=== PATIENT | male | born 1950 | race Caucasian/White ===

== ENCOUNTER → 2022-02-06 08:54 | Outpatient (CLI) | payer MEDICARE, OTHER, SELFPAY ==
[2022-02-06 13:17] LABS: COVID19 -Nasal RAPID Negative (Negative)
== END ==
PROVIDERS: Visit Provider Surgery
DX: Z20.822 Contact with and (suspected) exposure to COVID-19 (principal); Z01.812 Encounter for preprocedural laboratory examination
CPT/HCPCS: 87635; C9803

== ENCOUNTER 2022-02-07 06:39 | Day surgery (SDC) | payer MEDICARE, OTHER, SELFPAY ==
[2022-02-07 06:58] VITALS: BP 142/77; PULSE 46; RESP 12; TEMP 36.3; O2SAT 100
[2022-02-07 07:00] VITALS: BMI 24.1
[2022-02-07] MEDS: LACTATED RINGERS 1,000 ML 42 ML IV (07:09)
--- NOTE | 2022-02-07 07:45 | PM.HP.1 ---
History of Present Illness History of Present Illness Date Patient Seen: 02/07/22 Time Patient Seen: 07:46 Chief complaint: Recurrent RIH Hernia Repair w/ Mesh Narrative: Colton is here for his open recurrent right inguinal hernia repair. No changes to his health. See the prior office note for details. Patient History Medical History Anxiety Hyperlipemia Hypertension Insomnia Rheumatoid arthritis Tinnitus Vitamin D deficiency Surgical History H/O arthroscopy of left knee H/O right inguinal hernia repair Family & Social History Social History: household members spouse Tobacco & Substance use: Smoking Status Former smoker alcohol intake current alcohol intake frequency 0-2 drinks per day Substance Use Type marijuana Meds Home Medications and Allergies Home Medications Medication Instructions Recorded Confirmed Type calcium carbonate 500 mg-vitamin 1 tab PO BID 12/14/21 02/07/22 History D3 10 mcg (400 unit) tablet escitalopram oxalate 10 mg tablet 10 mg PO DAILY 12/14/21 02/07/22 History folic acid 1 mg tablet 1 mg PO DAILY 12/14/21 02/07/22 History lisinopril 10 mg tablet 10 mg PO DAILY 12/14/21 02/07/22 History methotrexate sodium 2.5 mg tablet 2.5 mg PO QWEEK 12/14/21 02/07/22 History omeprazole 20 mg capsule,delayed 20 mg PO DAILY 12/14/21 02/07/22 History release simvastatin 40 mg tablet 40 mg PO DAILY 12/14/21 02/07/22 History trazodone 100 mg tablet 100 mg PO BEDTIME PRN Sleep 12/14/21 02/07/22 History Allergies Allergy/AdvReac Type Severity Reaction Status Date / Time No Known Drug Allergies Allergy Verified 02/07/22 06:55 Exam Vital Signs (past 8 hours): - 02/07/22 06:58 Temperature 97.3 F L Pulse Rate 46 L Respiratory Rate 12 Blood Pressure 142/77 H Pulse Oximetry 100 Oxygen Delivery Method Room Air Oxygen Delivery Method Room Air Const General: healthy appearing Other: Right inguinal hernia Assessment & Plan Assessment and plan (1) Recurrent right inguinal hernia: Status: Acute Plan Proceed with open recurrent right inguinal hernia repair with mesh. Time Spent With Patient Critical Care time: I spent a total of [] minutes of critical care time on this patient's care today; this time is exclusive of procedural time.
[2022-02-07] MEDS: CEFAZOLIN 2 GM/20 ML SYRINGE IV (08:02)
[2022-02-07] MEDS: LIDOCAINE 1% W/EPI 20 ML INJ (08:12)
--- NOTE | 2022-02-07 08:17 | SUR.OPER ---
Supine on padded OR bed, head on pillow, arms secured on padded arm boards at <90 degrees abduction, legs uncrossed, safety belt at thigh, tape over blanket over lower legs.POSITION APPROVED BY SURGEON AND ANESTHESIA
[2022-02-07] MEDS: BUPIVACAINE 0.5% (PF) VIAL 30 ML INJ (08:22)
[2022-02-07 09:45] VITALS: BP 153/85; PULSE 57; RESP 21; TEMP 36.7; O2SAT 94
[2022-02-07 09:50] VITALS: BP 146/83; PULSE 62; RESP 16; O2SAT 94
--- NOTE | 2022-02-07 09:50 | SUR.PHASEI ---
Patient to recovery room with anesthesia and OR nursing staff s/p hernia repair in stable condition; placed on engine monitor, vss; no distress noted. Maintaining oxygen at 95% on room air. Dressing to right lower groin clean, dry and intact.
--- NOTE | 2022-02-07 09:53 | PM.OP.1 ---
Operative Date/Time/Diagnoses Date of procedure: 02/07/22 Time of procedure: 09:53 Pre-op diagnosis: Recurrent right inguinal hernia Post-op diagnosis: same Procedure & Clinicians Procedure: Open recurrent right inguinal hernia repair with mesh Same procedure as scheduled: Yes Surgeon: Leandro Ardon Anesthesia Type: General Operative Notes Procedure in detail: Patient is a 72-year-old man who presented with right inguinal discomfort. He stated that he had had 2 right inguinal hernia repairs and he believed they were both performed laparoscopically. Preoperative antibiotic was administered. The patient was brought to the operating room and placed on the table in supine position general anesthesia was induced. After clipping the hair in that right lower quadrant and right groin it was evident that he had had a prior open hernia repair. Roughly 10 mL of local anesthetic were injected into the skin and subcutaneous adipose tissue over the right groin. A 6 cm incision was made over the prior open right inguinal hernia repair scar. Dissection was carried down through the subcutaneous adipose tissue. The external oblique fascia was visible with multiple Ethibond sutures in place. The Ethibond sutures were cut and fascia was divided sharply with a 15 blade scalpel. It became evident that there was mesh adherent to the undersurface of the external oblique fascia the mesh was divided. Upon further dissection it became clear that the mesh had broken free from its attachments to the pubic tubercle. There appeared to be another layer of mesh at the floor of the inguinal canal which could potentially represent a laparoscopically placed mesh. The cord was dissected free from the to layers of mesh. There is extensive fibrosis but agreeable to dissect the cord using a combination of sharp and blunt dissection. We encircled the cord with a [place] drain for retraction. There is no obvious indirect sac and it is assumed that the patient's symptoms are from a direct defect since the mesh was detached medially. We placed a mesh patch along the inguinal canal floor. The mesh was secured with multiple interrupted 3-0 Prolene sutures to the pubic tubercle and shelving edge of the inguinal ligament as well as to the conjoint tendon medially. We overlapped the tails to recreate an internal ring and secured the medial tail to the inguinal ligament with additional sutures. We injected some more local into the fatty tissue in the inguinal canal and cord. Finally, we removed the [place] drain and closed the external oblique fascia with a running 3-0 Vicryl suture. Skin was closed with interrupted 3-0 Vicryl dermal sutures and a running 4 Monocryl subcuticular stitch. EBL 15 mL The patient was awakened and brought to recovery room. Post-operative Condition: stable Disposition: PACU
[2022-02-07 09:55] VITALS: BP 116/82; PULSE 62; RESP 12; O2SAT 96
[2022-02-07] MEDS: OXYCODONE IR 5 MG TABLET PO (09:56)
[2022-02-07] MEDS: ONDANSETRON 4 MG/2 ML INJ IV (09:57)
[2022-02-07 10:06] VITALS: BP 148/64; PULSE 58; RESP 16; TEMP 36.7; O2SAT 95
== END 2022-02-07 10:35 | disposition home or self-care (01) ==
PROVIDERS: PCP Registered Nurse; Referring Provider Surgery; Visit Provider Surgery
PROC: (CPT 49520; principal; 2022-02-07 07:45)
DX: K40.91 Unilateral inguinal hernia, without obstruction or gangrene, recurrent (principal); I10 Essential (primary) hypertension
CPT/HCPCS: 49520; J0690; J1100; J2250; J2405; J2704; J3010

== ENCOUNTER → 2022-02-22 12:04 | Outpatient (CLI) | payer MEDICARE, OTHER, SELFPAY ==
--- NOTE | 2022-02-22 12:05 | DI.US.S_ITS ---
PROCEDURE: US ABDOMEN LIMITED INDICATIONS: Abdominal postprandial pain TECHNIQUE: Real-time focused scanning was performed of the abdomen, with image documentation. COMPARISON: None. FINDINGS: The liver is mildly prominent in size at 16.1 cm and demonstrates normal echogenicity. No findings of gallstones or sludge are seen. The gallbladder wall is not thickened, measuring 3 mm or less. No specific pericholecystic fluid is seen. The sonographic [place]razas sign is negative. There is no biliary dilatation, the common bile duct measures 5 mm. No significant pancreatic abnormality is seen on these images. IMPRESSION: The gallbladder demonstrates a normal sonographic appearance. No biliary dilatation is seen. Dictated by: Cesario Thao M.D. on 02/22/2022 at 13:23 Approved by: Cesario Thao M.D. on 02/22/2022 at 13:24
== END ==
PROVIDERS: PCP Registered Nurse; Referring Provider Surgery; Visit Provider Surgery
DX: R10.9 Unspecified abdominal pain (principal)
CPT/HCPCS: 76705

== ENCOUNTER → 2022-06-05 11:34 | Outpatient (CLI) | payer MEDICARE, OTHER, SELFPAY ==
[2022-06-05 13:42] LABS: COVID19 -Nasal RAPID Negative (Negative)
== END ==
PROVIDERS: PCP Registered Nurse; Visit Provider Surgery
DX: Z20.822 Contact with and (suspected) exposure to COVID-19 (principal); Z01.812 Encounter for preprocedural laboratory examination
CPT/HCPCS: 87635

== ENCOUNTER 2022-06-06 07:55 | Day surgery (SDC) | payer MEDICARE, OTHER, SELFPAY ==
[2022-06-06 08:13] VITALS: BP 147/74; PULSE 55; RESP 14; TEMP 37; O2SAT 98; BMI 21.2
[2022-06-06] MEDS: LACTATED RINGERS 1,000 ML 84 ML IV (08:24)
--- NOTE | 2022-06-06 08:58 | PM.HP.1 ---
History of Present Illness History of Present Illness Date Patient Seen: 06/06/22 Time Patient Seen: 08:58 Chief complaint: OPEN LIH REPAIR Narrative: Colton is here for his left inguinal hernia repair. We performed an open recurrent right inguinal hernia repair several months ago. He still has same types of pain on the right side that always did pulling burning Patient History Medical History (Updated 02/07/22 @ 10:08 by Leandro Ardno MD) Anxiety Hyperlipemia Hypertension Insomnia Rheumatoid arthritis Tinnitus Vitamin D deficiency Surgical History H/O arthroscopy of left knee H/O right inguinal hernia repair Family & Social History Social History: household members spouse Tobacco & Substance use: Smoking Status Former smoker alcohol intake current alcohol intake frequency 0-2 drinks per day Substance Use Type marijuana Meds Home Medications and Allergies Home Medications Medication Instructions Recorded Confirmed Type calcium carbonate 500 mg-vitamin 1 tab PO BID 12/14/21 06/06/22 History D3 10 mcg (400 unit) tablet escitalopram oxalate 10 mg tablet 10 mg PO DAILY 12/14/21 06/06/22 History folic acid 1 mg tablet 1 mg PO DAILY 12/14/21 06/06/22 History lisinopril 10 mg tablet 10 mg PO DAILY 12/14/21 06/06/22 History methotrexate sodium 2.5 mg tablet 2.5 mg PO QWEEK 12/14/21 06/06/22 History omeprazole 20 mg capsule,delayed 20 mg PO DAILY 12/14/21 06/06/22 History release simvastatin 40 mg tablet 40 mg PO DAILY 12/14/21 06/06/22 History trazodone 100 mg tablet 100 mg PO BEDTIME PRN Sleep 12/14/21 06/06/22 History Allergies Allergy/AdvReac Type Severity Reaction Status Date / Time No Known Drug Allergies Allergy Verified 06/06/22 08:21 Exam Vital Signs (past 8 hours): - 06/06/22 08:13 Temperature 98.6 F Pulse Rate 55 L Respiratory Rate 14 Blood Pressure 147/74 H Pulse Oximetry 98 Oxygen Delivery Method Room Air Oxygen Delivery Method Room Air Narrative Exam Narrative: Left inguinal hernia Right groin well-healed scar Assessment & Plan Assessment and plan (1) Left inguinal hernia: Status: Acute Plan We will proceed with the open left inguinal hernia repair today. We reviewed the risks and benefits and he would like to proceed. Time Spent With Patient Critical Care time: I spent a total of [] minutes of critical care time on this patient's care today; this time is exclusive of procedural time.
[2022-06-06] MEDS: CEFAZOLIN 2 GM/100 ML PREMIX 100 ML IV (09:25)
--- NOTE | 2022-06-06 09:31 | SUR.OPER ---
Supine on padded OR bed, head on pillow, arms secured on padded arm boards at <90 degrees abduction, legs uncrossed, safety belt at thigh, tape over blanket over lower legs.
[2022-06-06] MEDS: BUPIVACAINE 0.25% (PF) 30 ML, EPINEPHrine 0.15 MG INJ (09:35)
[2022-06-06 10:31] VITALS: BP 136/89; PULSE 62; RESP 19; TEMP 36.8; O2SAT 94
--- NOTE | 2022-06-06 10:41 | PM.OP.1 ---
Operative Date/Time/Diagnoses Date of procedure: 06/06/22 Time of procedure: 10:41 Pre-op diagnosis: Left inguinal hernia Post-op diagnosis: same Procedure & Clinicians Procedure: Open left inguinal hernia repair with mesh Same procedure as scheduled: Yes Surgeon: Leandro Ardon Anesthesia Type: General Operative Notes Procedure in detail: Preoperative antibiotic was administered. The patient was brought to the operating room and placed on the table in supine position general anesthesia was induced. The left groin was prepped and draped in the normal fashion and a time-out was performed. Roughly 10 mL of local anesthetic were injected into the skin and subcutaneous adipose tissue over the left groin. A 6 cm incision was made over the left inguinal canal. Dissection was carried down through the subcutaneous adipose tissue. A bridging vein was cauterized. We exposed the external oblique aponeurosis in the direction of the fibers. Additional local was injected deep to the aponeurosis. A 15 blade scalpel was used to conner the external oblique aponeurosis. Metzenbaum scissors were used to carefully open the aponeurosis in the direction of the fibers taking care not to injure the underlying ilioinguinal nerve which was well seen and protected. We completely exposed the inguinal canal. The cord was dissected free from the inguinal ligament and floor of the inguinal canal and the external oblique aponeurosis was dissected off of the internal oblique taking care not to injure the hypogastric nerve. We encircled the cord with a [place] drain for retraction. There was a sliding indirect hernia. We dissected some of the fatty tissue off of the cord structures and reduced it into the abdomen. We placed a polypropylene mesh over the inguinal canal floor. The mesh was secured with multiple interrupted 3-0 Prolene sutures to the pubic tubercle and shelving edge of the inguinal ligament as well as to the conjoint tendon medially. We overlapped the tails to recreate an internal ring and secured the medial tail to the inguinal ligament with additional sutures. We injected some more local into the fatty tissue in the inguinal canal and cord. Finally, we removed the Sachin drain and closed the external oblique fascia with a running 3-0 Vicryl suture. Skin was closed with interrupted 3-0 Vicryl dermal sutures and a running 4 Monocryl subcuticular stitch. EBL 5 mL The patient was awakened and brought to recovery room. Post-operative Condition: stable Disposition: PACU
[2022-06-06 10:44] VITALS: BP 116/63; PULSE 63; RESP 17; O2SAT 96
[2022-06-06 10:50] VITALS: BP 130/81; PULSE 66; RESP 15; O2SAT 94
[2022-06-06 11:05] VITALS: BP 147/75; PULSE 55; RESP 18; TEMP 36.3; O2SAT 97
--- NOTE | 2022-06-06 11:15 | SUR.PHASEII ---
Pt wtih reported PVCs and pauses in the PACU. Dr Waite aware. Pt has no c.o palpitations or chest pain. No SOB, no dizziness.
== END 2022-06-06 11:16 | disposition home or self-care (01) ==
PROVIDERS: PCP Registered Nurse; Referring Provider Surgery; Visit Provider Surgery
PROC: (CPT 49505; principal; 2022-06-06 09:45)
DX: K40.90 Unilateral inguinal hernia, without obstruction or gangrene, not specified as recurrent (principal)
CPT/HCPCS: 49505; J0171; J0690; J1100; J1885; J2250; J2405; J2704; J3010